=== PATIENT | male | born 1960 | race African-American/Black ===

== ENCOUNTER 2017-12-14 08:08 | Observation (INO) ==
[2017-12-14] MEDS ORDERED: ONDANSETRON 4 MG/2 ML VIAL IV STA (08:51)
[2017-12-14] MEDS ORDERED: SODIUM CHLORIDE 0.9% 1,000 ML IV STA ×2 (08:51→12:14)
[2017-12-14] MEDS ORDERED: ONDANSETRON 4 MG/2 ML VIAL ONE (09:08)
[2017-12-14 09:36] LABS: Basophils % 0.4 % (0.0-0.8); Eosinophils # 0.1 10*3/uL (0.0-0.87); Eosinophils % 1.4 % (0.00-10.9); Hematocrit 38.5 VOL% (42.0-52.0); Hemoglobin 12.5 GM/DL (14.0-18.0); Immature Granulocytes % 0.8 %; Immature Granulocytes Absolute 0.04 #; Lymphocytes # 0.7 10*3/uL (1.4-4.0); Lymphocytes % 14.3 % (21.2-54.2); Mean Corpuscular HGB Conc 32.5 GM/DL (32-36); Mean Corpuscular Hemoglobin 29 PG (27-34); Mean Corpuscular Volume 88.3 FL (87-102); Mean Platelet Volume 10.8 FL (9.6-12.0); Monocytes # 0.3 10*3/uL (0.11-0.8); Monocytes % 6.8 % (1.7-12.7); Neutrophils # 3.8 10*3/uL (1.4-7.4); Neutrophils % 76.3 % (38.7-73.9); Platelet Count 217 T/CUMM (130-400); Red Blood Count 4.36 MC/CUMM (3.8-5.5); Red Cell Distribution Width 11.4 % (9.3-17.3)
[2017-12-14 09:46] LABS: PT Patient Result 10.5 SECS
[2017-12-14 10:04] LABS: Albumin 3.6 G/DL (3.4-5.0); Bilirubin,Total 0.5 MG/DL (0.2-1.0); Calcium 9.1 MG/DL (8.5-10.1); Osmolality,Calculated 285.8 MOS/KG (273-304); Potassium 4.4 MMOL/L (3.5-5.1); Total Protein 6.5 G/DL (6.4-8.3)
[2017-12-14] MEDS ORDERED: MECLIZINE 25 MG TABLET PO STA (10:43)
[2017-12-14] MEDS ORDERED: MECLIZINE 25 MG TABLET ONE (10:59)
[2017-12-14] MEDS: metFORMIN 500 MG TABLET PO SCH (12:11)
[2017-12-14] MEDS ORDERED: LORazepam 2 MG/1 ML VIAL IV STA (14:38)
[2017-12-14] MEDS ORDERED: DIAZEPAM 5 MG TABLET ONE (15:07)
[2017-12-14] MEDS ORDERED: DIAZEPAM 5 MG TABLET PO STA (15:11)
[2017-12-14] MEDS ORDERED: GLUCAGON 1 MG VIAL IM PRN (15:18)
[2017-12-14] MEDS ORDERED: DEXTROSE 50% 25 GM/50 ML VIAL IV PRN (15:18)
[2017-12-14] MEDS ORDERED: ACETAMINOPHEN 325 MG TABLET PO PRN (15:38)
[2017-12-14] MEDS ORDERED: ONDANSETRON 4 MG/2 ML VIAL IV PRN (15:38)
[2017-12-14] MEDS ORDERED: DIAZEPAM 2 MG TABLET PO PRN (15:56)
[2017-12-14] MEDS: INSULIN LISPRO 100 UNIT/ML SUBCUT SCH (18:05)
[2017-12-14] MEDS: SODIUM CHLORIDE 0.9% 1,000 ML IV SCH (18:49)
[2017-12-14 19:55] LABS: Apearance,Urine CLEAR (Clear); Bilirubin,Urine Negative (Negative); Blood, Urine Negative (Negative); Glucose,Urine (UA) >=500 mg/dL (Negative); Ketones,Urine Negative (Negative); Nitrite,Urine Negative (Negative); Protein,Urine Negative; RBC,Urine 1 /HPF (0-4); Urine Color Straw (Yellow); Urine Specific Gravity 1.003 (1.001-1.035); Urine Urobilinogen < 2.0 EU/DL (0.2-1.0); WBC,Urine <1 /HPF (0-6)
[2017-12-15] MEDS: INSULIN LISPRO 100 UNIT/ML SUBCUT SCH ×6 (00:21→20:39)
[2017-12-15] MEDS: SODIUM CHLORIDE 0.9% 1,000 ML IV SCH ×3 (00:22→18:05)
[2017-12-15 05:59] LABS: Basophils % 0.3 % (0.0-0.8); Eosinophils # 0.1 10*3/uL (0.0-0.87); Eosinophils % 1.8 % (0.00-10.9); Hematocrit 34.7 VOL% (42.0-52.0); Hemoglobin 11.2 GM/DL (14.0-18.0); Immature Granulocytes % 0.2 %; Immature Granulocytes Absolute 0.01 #; Lymphocytes # 1.3 10*3/uL (1.4-4.0); Mean Corpuscular HGB Conc 32.3 GM/DL (32-36); Mean Corpuscular Hemoglobin 29 PG (27-34); Mean Corpuscular Volume 88.5 FL (87-102); Mean Platelet Volume 10.2 FL (9.6-12.0); Monocytes # 0.5 10*3/uL (0.11-0.8); Monocytes % 8.3 % (1.7-12.7); Neutrophils # 4.3 10*3/uL (1.4-7.4); Neutrophils % 69.4 % (38.7-73.9); Platelet Count 208 T/CUMM (130-400); Red Blood Count 3.92 MC/CUMM (3.8-5.5); Red Cell Distribution Width 11.8 % (9.3-17.3); White Blood Count 6.2 T/CUMM (4-12)
[2017-12-15 06:32] LABS: Calcium 8.2 MG/DL (8.5-10.1); Osmolality,Calculated 285.3 MOS/KG (273-304); Potassium 4.2 MMOL/L (3.5-5.1)
[2017-12-15] MEDS ORDERED: PANTOPRAZOLE 40 MG TABLET PO SCH (09:00)
[2017-12-15] MEDS: metFORMIN 500 MG TABLET PO SCH (10:01)
[2017-12-15] MEDS ORDERED: DIAZEPAM 2 MG TABLET PO SCH ×2 (12:00→13:00)
[2017-12-15] MEDS ORDERED: GLUCAGON 1 MG VIAL IM PRN (15:06)
[2017-12-15] MEDS ORDERED: DEXTROSE 50% 25 GM/50 ML VIAL IV PRN (15:06)
[2017-12-15] MEDS: DIAZEPAM 2 MG TABLET PO SCH (20:38)
[2017-12-16] MEDS: SODIUM CHLORIDE 0.9% 1,000 ML IV SCH ×3 (00:49→07:30)
[2017-12-16] MEDS: DIAZEPAM 2 MG TABLET PO SCH (04:04)
[2017-12-16] MEDS: metFORMIN 500 MG TABLET PO SCH (08:17)
[2017-12-16] MEDS: INSULIN LISPRO 100 UNIT/ML SUBCUT SCH (08:17)
[2017-12-16 08:29] VITALS: BP 122/66
[2017-12-16] MEDS ORDERED: metFORMIN 500 MG TABLET PO SCH (17:00)
[2017-12-16] MEDS ORDERED: ROSUVASTATIN 10 MG TABLET PO SCH (21:00)
== END 2017-12-16 10:46 | disposition home or self-care (01) ==
LOC: N.EDINP 08:08 → N.ED 08:08 → SUATTDRO 14:43 → N.EDINP 17:02 → N.4E 17:19
PROVIDERS: ADMIT Internal Medicine; ATTEND Hospitalist